=== PATIENT | female | born 1935 | race African-American/Black ===

== ENCOUNTER 2020-07-26 10:40 | Outpatient (CLI) | payer MEDICARE ==
--- NOTE | 2020-07-26 13:23 | Cat Scan Report ---
CT abdomen pelvis wo con INDICATION / CLINICAL INFORMATION: CALCULUS OF KIDNEY. Flank pain left flank pain TECHNIQUE: CT abdomen and pelvis without IV contrast All CT scans at this location are performed using CT dose r eduction for ALARA by means of automated exposure control. COMPARISON: None available. FINDINGS: Abdomen and pelvis: The lower lungs are clear of acute infiltrate. There is slight prominence of both collecting systems but no obstructive ureteral calculus is identif ied. There is slight right hydronephrosis. The liver, gallbladder, spleen, pancreas and adrenal gland s are unremarkable. Shotty nonpathologically enlarged retroperitoneal nodes are present. There is sev ere sigmoid diverticulosis but no diverticulitis. Urinary bladder is unremarkable. No free pelvic flu id. Scattered atherosclerotic calcifications of a nondilated abdominal aorta. There is moderate thora columbar type degenerative changes in the setting of a severe compression fracture deformity involvin g the L1 vertebral body with about 90% loss of height. IMPRESSION: Mild right hydronephrosis but no obstructive ureteral calculus identified. Severe compression fractur e deformity of the L1 vertebral body, age indeterminate. Signer Name: Harry Lamar MD Signed: 07/26/2020 1:18 PM Workstation Name: [id number]
== END 2020-07-26 10:41 | disposition home or self-care (01) ==
LOC: CT 10:40
PROVIDERS: ATTEND Urology
DX: N13.30 Unspecified hydronephrosis (principal); N20.0 Calculus of kidney; K57.30 Diverticulosis of large intestine without perforation or abscess without bleeding; M47.815 Spondylosis without myelopathy or radiculopathy, thoracolumbar region
CPT/HCPCS: 74176

== ENCOUNTER 2020-09-27 08:41 | Outpatient (CLI) | payer MEDICARE ==
[2020-09-27] MEDS ORDERED: FUROSEMIDE 20 MG/2 ML INJ ONE (09:39)
[2020-09-27] MEDS ORDERED: FUROSEMIDE 20 MG/2 ML INJ IV ONE (10:00)
--- NOTE | 2020-09-27 11:02 | Nuclear Medicine Report ---
KIDNEY IMAGING MORPHOLOGY WITH VASCULAR FLOW AND FUNCTION, SINGLE STUDY WITH LASIX INDICATION / CLINICAL INFORMATION: Calculus of kidney with calculus of ureter. Evaluate renal function. TECHNIQUE: Following IV administration of 5.5 mCi [id number], sequential dynamic images of the kidneys were obt ained in the posterior projection. Following IV administration of Lasix, additional images were acqui red. Time activity whole kidney curves were analyzed. COMPARISON: CT abdomen and pelvis without contrast from 07/26/2020. FINDINGS: There is homogeneous distribution of the radiopharmaceutical within the renal cortex of each kidney. The right kidney is similar in size as the left kidney. DIFFERENTIAL FUNCTION: Right: 50.3% Left: 49.7% RIGHT: Ufiq-ki-vmep activity: 3 minutes, normal T1/2: 8 minutes, normal Ureter: No significantly abnormal activity. Normal caliber. Post-Lasix imaging:T1/2: 36.7, normal No significant abnormality in urinary excretion. LEFT: Qzah-hb-afyi activity: 3 minutes, normal T1/2: 8 minutes, normal Ureter: No significantly abnormal activity. Normal caliber. Post-Lasix imaging:T1/2: 38.9, normal No significant abnormality in urinary excretion. Additional Findings: None. IMPRESSION: Normal bilateral renal function as detailed above. Signer Name: Sam Carr MD Signed: 09/27/2020 10:57 AM Workstation Name: [email or web address]
== END 2020-09-27 08:42 | disposition home or self-care (01) ==
LOC: NM 08:41
PROVIDERS: ATTEND Urology
DX: N20.2 Calculus of kidney with calculus of ureter (principal)
CPT/HCPCS: 78708; A9562; J1940